=== PATIENT | female | born 1960 | race Caucasian/White ===

== ENCOUNTER 2017-05-22 02:11 | Emergency (ER) | END 2017-05-22 04:04 | disposition home or self-care (01) ==

== ENCOUNTER 2017-11-29 15:18 | Emergency (ER) | END 2017-11-29 18:49 | disposition home or self-care (01) ==

== ENCOUNTER 2018-01-13 06:55 | Emergency (ER) | END 2018-01-13 08:50 | disposition home or self-care (01) ==

== ENCOUNTER 2018-06-27 22:05 | Emergency (ER) | payer OTHER ==
[~2018-06-27] VITALS: Ht 162.6 cm; Wt 51.7 kg
[~2018-06-27 22:05] MED LIST: CALAMINE TOP; CLIN300C10 PO; ELIM TOP; ERYT1OIN6 RIGHT EYE; HYDR-843 PO; IBUP-1542 PO; LISI10TA2 PO; NPH10OT RIGHT EAR; POLY17PO6 PO
[2018-06-27 22:09] VITALS: Ht 162.6 cm; Wt 51.7 kg
[2018-06-28] MEDS ORDERED: PENICILLIN G BENZ 2.4 MIL UNIT SYG IM ONE (01:30)
--- NOTE | 2018-06-28 01:36 | ERD ---
ER Documentation Chief Complaint Chief Complaint BIB-RA mechanical GLF from missing a step, head lac/injury, no KO HPI 57-year-old female transient brought in by ambulance after a mechanical ground- level fall. She states she tripped over something in the street hitting her head on the ground. She denies loss of consciousness. She did notice bleeding. She complains of a mild headache but has no other complaints. The patient is very sleepy on exam and seems intoxicated, and is not answering all questions. ROS Unable to obtain given intoxication Medications Home Meds Discontinued Scripts Erythromycin Base (Erythromycin) 1 Gm Oint...g., 1 APPLIC RIGHT EYE QID for 7 Days Prov:TRACY BARRY PA-C 01/13/18 Neomycin/Polymyxin/Hydrocort* (Cortisporin* Otic) 10 Ml Susp, 4 DROP RIGHT EAR QID for 7 Days, EA Prov:TRACY BARRY PA-C 01/13/18 Polyethylene Glycol* (Miralax*) 17 Gm Powd.pack, 17 GM PO DAILY, #7 Prov:TRACY BARRY PA-C 01/13/18 Ibuprofen* (Motrin*) 600 Mg Tab, 600 MG PO Q6, #30 TAB Prov:TRACY BARRY PA-C 01/13/18 Permethrin* (Elimite*) 5% Cr, 1 APPLIC TOP ONCE, #1 TUB Prov:MALINI JONES MD 11/29/17 Lisinopril* (Lisinopril*) 10 Mg Tablet, 10 MG PO DAILY, #30 TAB Prov:MALINI JONES MD 11/29/17 Calamine* (Calamine*) 120 Ml Lotion, 1 APPLIC TOP Q4H for RASH, #1 BOT Prov:MICHELE WYNN NP 05/22/17 Hydroxyzine Hcl* (Hydroxyzine Hcl*) 25 Mg Tablet, 25 MG PO Q8H PRN for ITCHING, #30 TAB Prov:MICHELE WYNN NP 05/22/17 Clindamycin Hcl* (Clindamycin Hcl*) 300 Mg Capsule, 300 MG PO TID for 10 Days, CAP Prov:MICHELE WYNN NP 05/22/17 Allergies Allergies: Coded Allergies: No Known Allergy (Unverified , 06/28/18) PMhx/Soc Medical and Surgical Hx: pt denies Medical Hx, pt denies Surgical Hx History of Surgery: No Anesthesia Reaction: No Hx Neurological Disorder: No Hx Respiratory Disorders: No Hx Cardiac Disorders: No Hx Psychiatric Problems: Yes Hx Miscellaneous Medical Probl: No Hx Alcohol Use: Yes (DRANK TODAY, "FOUR BOTTLES") Hx Substance Use: No Hx Tobacco Use: No Smoking Status: Never smoker FmHx Unable to obtain Physical Exam Vitals Vital Signs Date Temp Pulse Resp B/P (MAP) Pulse Ox O2 O2 Flow FiO2 Time Delivery Rate 06/28/18 97.5 92 20 145/90 98 Room Air 02:42 (108) 06/28/18 97.5 90 18 147/90 98 Room Air 02:03 (109) 06/28/18 97.5 90 18 145/92 98 Room Air 01:15 (109) 06/28/18 97.5 86 18 137/84 98 Room Air 00:08 (101) 06/27/18 97.5 89 18 131/89 98 Room Air 23:53 (103) 06/27/18 97.5 95 18 153/88 98 22:09 (109) Physical Exam INITIAL VITAL SIGNS: Reviewed by me GENERAL: Patient is lying on gurney, disheveled HEAD: 3 cm laceration of the scalp in the frontal parietal region at the midline. No active bleeding. No skull depression. EYES: EOMI. PERRL. No icterus. No pallor. Lids, lashes, and conjunctiva clear. ENT: Mucous membranes dry, no erythema or tonsillar exudates. Airway patent. NECK: Supple. No masses. Full range of motion. No midline tenderness RESPIRATORY: Clear to auscultation bilaterally. No wheezing, No rales, No rhonchi. No accessory muscle use. No retractions. CV: Regular rate and rhythm. No murmurs, No rubs or gallops. ABDOMEN: Soft, non-distended, non-tender. No guarding. No rebound. No pulsatile mass. Bowel sounds normal. BACK: Non-tender. No CVA tenderness. No midline tenderness EXTREMITIES: No edema. No clubbing or cyanosis. Pulses symmetric. SKIN: Nodular lesions with excoriation scattered. warm and dry. No obvious petechiae or purpura. NEUROLOGIC: Awake and alert. Slurred speech. Moves all extremities equally. No focal deficits. Result Diagram: 06/27/18234906/27/182349 Results 24 hrs Laboratory Tests Test 06/27/18 23:50 06/28/18 02:10 White Blood Count 6.5 10^3/ul Red Blood Count 4.50 10^6/ul Hemoglobin 12.6 g/dl Hematocrit 38.6 % Mean Corpuscular Volume 85.8 fl Mean Corpuscular Hemoglobin 28.0 pg Mean Corpuscular Hemoglobin Concent 32.6 g/dl Red Cell Distribution Width 13.2 % Platelet Count 391 10^3/UL Mean Platelet Volume 9.9 fl Immature Granulocytes % 0.300 % Neutrophils % 49.0 % Lymphocytes % 38.4 % Monocytes % 7.9 % Eosinophils % 3.5 % Basophils % 0.9 % Nucleated Red Blood Cells % 0.0 /100WBC Immature Granulocytes # 0.020 10^3/ul Neutrophils # 3.2 10^3/ul Lymphocytes # 2.5 10^3/ul Monocytes # 0.5 10^3/ul Eosinophils # 0.2 10^3/ul Basophils # 0.1 10^3/ul Nucleated Red Blood Cells # 0.0 10^3/ul Sodium Level 141 mmol/L Potassium Level 3.2 mmol/L Chloride Level 101 mmol/L Carbon Dioxide Level 27 mmol/L Anion Gap 13 Blood Urea Nitrogen 18 mg/dl Creatinine 0.58 mg/dl Est Glomerular Filtrat Rate mL/min > 60 mL/min Glucose Level 97 mg/dl Calcium Level 9.4 mg/dl Total Bilirubin 0.3 mg/dl Direct Bilirubin 0.00 mg/dl Indirect Bilirubin 0.3 mg/dl Aspartate Amino Transf (AST/SGOT) 37 IU/L Alanine Aminotransferase (ALT/SGPT) 28 IU/L Alkaline Phosphatase 93 IU/L Total Protein 7.2 g/dl Albumin 4.2 g/dl Globulin 3.00 g/dl Albumin/Globulin Ratio 1.40 Ethyl Alcohol Level Pending Urine Color YELLOW Urine Clarity CLEAR Urine pH 5.0 Urine Specific [place] 1.019 Urine Ketones NEGATIVE mg/dL Urine Nitrite NEGATIVE mg/dL Urine Bilirubin NEGATIVE mg/dL Urine Urobilinogen NEGATIVE mg/dL Urine Leukocyte Esterase TRACE Jones/ul Urine Microscopic RBC 0 /HPF Urine Microscopic WBC 6 /HPF Urine Squamous Epithelial Cells FEW /HPF Urine Bacteria FEW /HPF Urine Mucus FEW /HPF Urine Hemoglobin NEGATIVE mg/dL Urine Glucose NEGATIVE mg/dL Urine Total Protein NEGATIVE mg/dl Current Medications Medications Dose Sig/[place] Start Time Status Last (Trade) Ordered Route PRN Stop Time Admin Dose Reason Admin Penicillin 2,400,000 ONCE ONCE 06/28/18 DC 06/28/18 G units IM 01:30 01:42 Benzathine 06/28/18 01:31 (Bicillin La) Procedures/MDM EMERGENT LABS AND DIAGNOSTIC STUDIES: Lab Results above were reviewed and interpreted by me. CBC: no anemia or evidence of infection CMP: No evidence of electrolyte abnormality, renal failure, hypoglycemia, liver failure, or biliary obstruction UA: no evidence of infection Drug screen RPR pending Radiology Results as interpreted by Radiology below were reviewed by Maria Fernanda simmons MD: CT head: Scalp swelling noted. No acute intracranial traumatic abnormalities or skull fracture. Initial Nursing notes reviewed. Previous Medical Records requested via the Electronic Health Record. EMERGENCY DEPARTMENT COURSE / MEDICAL DECISION MAKING: Laceration Repair by me: Anesthesia: None Location: scalp Tendon/Joint/Nerves: No injury Foreign body: None detected after copious irrigation and exploration Technique: One staple Complexity: No subcutaneous sutures/mucosal repair/edge excision Post Closure Length: 3 cm Patient's bleeding was easily controlled in the department and there is no indication of anemia. No evidence of foreign body. Patients presented with altered mental status. Vitals normal. Patient maintaining airway. Based on EMS report and exam, patients AMS is likely related to alcohol or drug intoxication. I have a low suspicion for serious metabolic or electrolyte derangement, intracranial hemorrhage, acute infectious process, meningitis/encephalitis, or CVA. RPR was sent and is pending. Given the high incidence of syphilis in the homeless population and the appearance of her lesions, I treated her with Pen G IM. Patient's friend arrived at bedside and states that the patient is homeless, has psychiatric issues that are not being treated, and drinks alcohol regularly. For this reason, labs were ordered for medical clearance so the patient may talk to social work and tele-psychiatry when sober if needed. Patient was observed for several hours in the ER with serial examinations and mental status evaluations. The patients symptoms have not completely resolved and not yet safe for discharge. Patient will continue to be observed in the department for improvement of symptoms and mental status. Patient will be signed out to the oncoming ED physician, who will reevaluate the patient and decide on final disposition. She may need social work consultation and possibly psych eval. Departure Diagnosis: Primary Impression: Acute head injury without loss of consciousness Encounter type: initial encounter Qualified Codes: S09.90XA - Unspecified injury of head, initial encounter Additional Impressions: Acute alcohol intoxication Complication of substance-induced condition: uncomplicated Qualified Codes: F10.920 - Alcohol use, unspecified with intoxication, uncomplicated Scalp laceration Encounter type: initial encounter Qualified Codes: S01.01XA - Laceration without foreign body of scalp, initial encounter Rash and nonspecific skin eruption Condition: Fair MALINI JONES MD Jun 28, 2018 01:36
[2018-06-28] MEDS ORDERED: POTASSIUM CHLORIDE (SR) 20 MEQ TAB PO STA (04:59)
[2018-06-28] MEDS ORDERED: IBUPROFEN 600 MG TAB PO ONE (08:00)
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
[2018-06-28] MEDS ORDERED: HYDROCODONE/APAP (5/325) TAB PO ONE (11:00)
[2018-06-28] MEDS ORDERED: ERYTHROMYCIN 1 GM OPH OINT LEFT EYE ONE (11:00)
[2018-06-28 12:53] VITALS: BP 139/98; PULSE 85; RESP 16
== END 2018-06-28 12:50 | disposition home or self-care (01) ==
LOC: E/R 22:05
DX: S01.01XA Laceration without foreign body of scalp, initial encounter (principal); F10.920 Alcohol use, unspecified with intoxication, uncomplicated; R21 Rash and other nonspecific skin eruption; R40.2132 Coma scale, eyes open, to sound, at arrival to emergency department; R40.2342 Coma scale, best motor response, flexion withdrawal, at arrival to emergency department; R40.2242 Coma scale, best verbal response, confused conversation, at arrival to emergency department; W01.198A Fall on same level from slipping, tripping and stumbling with subsequent striking against other object, initial encounter; Y92.410 Unspecified street and highway as the place of occurrence of the external cause
CPT/HCPCS: 12002; 70450; 80053; 80307; 81001; 85025; 86592; 96372; J0561; Z7502; Z7610